=== PATIENT | male | born 1975 | race Caucasian/White ===

== ENCOUNTER → 2016-11-12 | Outpatient (CLI) | payer OTHER ==
--- NOTE | 2016-11-12 10:39 | DX ---
Left Rib Series with PA Chest - Three Views Indication: Left-sided pain. Fall.. Technique: PA view and two oblique views of the left hemithorax. Findings: The lungs are well aerated and clear. No pneumothorax, consolidation or effusion. No rib fr acture. A BB overlies the lateral left seventh and eighth ribs in the midaxillary line. The left acro mioclavicular interval is asymmetrically wide relative to the right (new since May 2010). The evert coclavicular intervals are normal. Thoracic spine has mild dextrocurvature similar to May 2010. Impression: 1. No rib fracture, pneumothorax or effusion. 2. 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 3. Mild dextrocurvature unchanged. Comment: Results were called to Bri Campa shortly after study completion.
== END ==
LOC: BMCIMAGING 10:05
PROVIDERS: ATTEND Nurse Practitioner Adult Health
DX: S43.102A Unspecified dislocation of left acromioclavicular joint, initial encounter (principal); R07.81 Pleurodynia
CPT/HCPCS: 71101-PO